=== PATIENT | male | born 1960 | race Two or more races ===

== ENCOUNTER 2024-10-16 08:00 | Outpatient (CLI) | payer OTHER ==
[~2024-10-16] VITALS: Ht 160 cm; Wt 81.6 kg
[2024-10-16 10:11] LABS: BASO % 0.8 % (0.1-1.2); EOS # 0.10 (0.04-0.54); EOS % 1.6 % (0.7-7.0); LYMPH # 1.84 (1.18-3.74); LYMPH % 28.7 % (19.3-53.1); MEAN PLATELET VOLUME 9.90 fl (9.4-12.4); MONO # 0.50 (0.24-0.82); MONO % 7.8 % (4.7-12.5); NEUT # 3.91 (1.56-6.13); NEUT % 60.9 % (34.0-71.1); RED CELL DISTRIBUTION WIDTH 11.9 % (11.6-14.4)
[2024-10-16 10:13] LABS: URINE APPEARANCE Clear; URINE BILIRRUBIN Negative (NEGATIVE); URINE BLOOD Negative; URINE COLOR Yellow; URINE GLUCOSE Negative (NEGATIVE); URINE KETONE Negative (NEGATIVE); URINE LEUKOCYTE Negative; URINE NITRATE Negative; URINE PROTEIN Negative (NEGATIVE); URINE UROBILINOGEN 0.2 E.U./dl
[2024-10-16 10:14] LABS: URINE BACTERIA 2.3 uL (0.0-1933); URINE CAST 0.00 uL (0.0-1.40); URINE EPITHELIAL CELLS 1.3 uL (0.0-38.8); URINE RBC 0.2 uL (0.0-20.8); URINE WBC 1.0 uL (0.0-23.2)
[2024-10-16 10:16] VITALS: BP 136/83
[2024-10-16 10:37] LABS: INR 0.95
[2024-10-16 10:43] LABS: ALT/SGPT 28.0 U/L (12-78); AST/SGOT 22.0 U/L (15-37); BILIRUBIN TOTAL 0.3 mg/dL (0.3-1.2); BUN CREA RATIO 15.0 (7.0-25.0); CHOL HDL RATIO 5.1 (0-5.0); CREATININE SERUM 1.1 mg/dL (0.70-1.30); GFR 67.18; GLOBULINA 3.3 G/DL (2.4-3.5); GLUCOSE FASTING 93.0 mg/dL (65-100); HDL 45.0 mg/dl (40-60); LDL 140.0 mg/dl (0-130); OSMOLALITY SERUM 284.0 MOSM/KG (275-295); VLDL 43.0 (0-39)
[2024-10-16 11:10] LABS: COVID-19 AG NEGATIVE (NEGATIVE)
[2024-10-16 11:14] LABS: RH POSITIVE
== END 2024-10-16 08:01 | disposition home or self-care (01) ==
LOC: LAB 08:00 → SURG 10-20 08:15 → CIR.AMB 10-20 08:15 → EDSTATUS 10-20 08:15 → CIR.AMB 10-20 20:15
PROVIDERS: ATTEND Orthopaedic Surgery
DX: M19.211 Secondary osteoarthritis, right shoulder (principal); D64.9 Anemia, unspecified; R10.9 Unspecified abdominal pain; Z79.01 Long term (current) use of anticoagulants; N39.0 Urinary tract infection, site not specified; E78.5 Hyperlipidemia, unspecified; R05.2 Subacute cough; D68.9 Coagulation defect, unspecified; Z03.818 Encounter for observation for suspected exposure to other biological agents ruled out; Z20.828 Contact with and (suspected) exposure to other viral communicable diseases